=== PATIENT | female | born 1995 | race African-American/Black ===

== ENCOUNTER 2023-09-10 11:12 | Emergency (ER) | payer OTHER, SELFPAY ==
[2023-09-10 11:22] VITALS: BP 123/81; PULSE 74; RESP 16; TEMP 36.7; O2SAT 100
--- NOTE | 2023-09-10 11:33 | ED.FEMALEGU ---
HPI - Female Genitourinary General Chief complaint: Urogenital-Female Stated complaint: Poss UTI Time Seen by Provider: 09/10/23 11:34 Source: patient, RN notes reviewed and old records reviewed Mode of arrival: ambulatory Limitations: no limitations History of Present Illness HPI Narrative: 28 year old female presents to [facility] care with complaints of odorous urine and some urinary urgency and frequency since Saturday. Patient reports that she has not had any fevers, chills or sweats, denies any nausea or vomiting or any diarrhea. Patient denies any vaginal drainage or any concern for STI exposure. Patient has history of past UTI's. MD elicited complaint: UTI Pertinent past history: other (UTI) Onset (ago): day(s) (4) Location of symptoms: urethra Severity: moderate Vaginal discharge: none Vaginal bleeding: none Related Data Home Medications Medication Instructions Recorded Confirmed albuterol sulfate 90 mcg/actuation See Rx Instructions .Route 09/10/23 09/10/23 aerosol inhaler .COMPLEX PRN sob cetirizine 10 mg tablet 10 mg PO DAILY 09/10/23 09/10/23 Allergies Allergy/AdvReac Type Severity Reaction Status Date / Time No Known Allergies Allergy Unverified 09/10/23 11:41 Review of Systems Review of Systems: CONSTITUTIONAL: Denies fever, chills, or sweats. CARDIOVASCULAR: Denies chest pain, palpitations, or edema. RESPIRATORY: Denies cough or dyspnea. GASTROINTESTINAL: Denies abdominal pain, nausea, vomiting, or diarrhea. GENITOURINARY: Reports dysuria, frequency, urgency. Denies flank pain or visible hematuria.reports foul odor of urine SKIN: Denies rash or itching. MUSCULOSKELETAL: Denies back pain or myalgia. Denies CVA tenderness NEUROLOGIC: Denies headache All systems reviewed & are unremarkable except as noted in HPI and below PMFSH Past Medical History Medical History (Updated 09/11/23 @ 07:59 by Mayela Meléndez NP) Asthma Borderline diabetes Seasonal allergies Urinary tract infection Social History Social History (Updated 09/11/23 @ 07:53 by Mayela Meléndez NP) Smoking status: Never smoker Alcohol intake: current Alcohol use details: social Substance use type: does not use Gender identity (if verbalized by the patient): Female Comments At time of signature, agree with nursing past medical, surgical, social and family history. There is no relevant family history pertinent to the presenting complaint Exam Narrative: GENERAL: Well-appearing, well-nourished, and in no acute distress. HEAD: Normocephalic, atraumatic. NECK: Supple.no lymphadenopathy CHEST: Clear to auscultation. No respiratory distress.SAO2 100% on room air HEART: Regular rate and rhythm. No murmur heard. Normal peripheral pulses. ABDOMEN: Soft, nontender, nondistended, normal active bowel sounds. No CVA tenderness, urinary frequency, urgency, foul odor to urie EXTREMITIES: Normal range of motion. No edema. SKIN: Warm, dry, no rash. NEURO: No focal deficits. Alert and oriented x3. Course Course Emergency Course: Patient is aware of diagnosis, understands and agrees to treatment plan.? Anticipatory guidance given.? Patient agrees to follow-up as directed and is aware of reasons to seek care at the emergency department. Portions of this record may have been created with voice recognition software Level of Care: Express Care Visit Vital Signs Vital signs: Vital Signs Temperature 36.7 C 09/10/23 11:22 Pulse Rate 74 09/10/23 11:22 Respiratory Rate 16 09/10/23 11:22 Blood Pressure 123/81 09/10/23 11:22 Pulse Oximetry 100 09/10/23 11:22 Oxygen Delivery Room Air 09/10/23 11:22 Temperature 36.7 C 09/10/23 11:22 Pulse Rate 74 09/10/23 11:22 Respiratory Rate 16 09/10/23 11:22 Blood Pressure 123/81 09/10/23 11:22 Pulse Oximetry 100 09/10/23 11:22 Oxygen Delivery Room Air 09/10/23 11:22 MDM - Female Genitourinary MDM Narrative Medical decision making
== END 2023-09-10 12:15 | disposition home or self-care (01) ==
PROVIDERS: Emergency Provider Registered Nurse; PCP Family Medicine
DX: N39.0 Urinary tract infection, site not specified (principal); J45.909 Unspecified asthma, uncomplicated; R73.03 Prediabetes
CPT/HCPCS: 81003; 87086; 87088; 99203; G0463